=== PATIENT | female | born 1950 | race Caucasian/White ===

== ENCOUNTER → 2023-06-07 11:02 | Outpatient (REF) | payer OTHER, SELFPAY | LOC: HWRAD 11:02 | PROVIDERS: ATTENDING PHYSICIAN Family Medicine | DX: R07.89 Other chest pain (principal) | CPT/HCPCS: 71046 ==

== ENCOUNTER 2023-11-14 03:52 | Inpatient (IN) | payer OTHER, SELFPAY ==
[2023-11-13 20:11] VITALS: BMI 32.1
[2023-11-13 20:14] VITALS: BP 218/120
[2023-11-13 20:27] LABS: % Basophils 0.4 % (0-2); % Eosinophils 2.7 % (0-6); % Immature Granulocytes 0.4 % (0-0.5); % Lymphocytes 22.5 % (20.5-51.1); % Monocytes 8.4 % (1.7-9.3); % Neutrophils 65.6 % (42.2-75.2); Absolute Eosinophils 0.3 10^3/uL (0-0.7); Absolute Lymphocytes 2.2 10^3/uL (1.2-3.4); Absolute Monocytes 0.8 10^3/uL (0.1-0.6); Absolute Neutrophils 6.3 10^3/uL (1.4-6.5); Hematocrit 38.1 % (37.0-47.0); Hemoglobin 13.1 g/dL (12.0-16.0); Mean Corp Hgb Conc. 34.4 g/dL (33.0-37.0); Mean Corpuscular Hgb 28.5 pg (27.0-31.0); Mean Platelet Volume 9.3 fL (7.4-10.4); Nucleated Red Blood Cells % 0 %; Platelet Count 243 10^3/uL (130-400); Red Blood Cell Count 4.59 10^6/uL (4.20-5.40); White Blood Cell Count 9.6 10^3/uL (4.8-10.8)
[2023-11-13 20:45] LABS: ALT (SGPT) 21 U/L (0-35); AST (SGOT) 27 U/L (14-36); Albumin 4.2 g/dl (3.5-5.0); Alkaline Phosphatase 65 U/L (38-126); Blood Urea Nitrogen 17 mg/dl (7-17); Calcium 9.7 mg/dl (8.4-10.2); Carbon Dioxide 31 mmol/L (22-30); Chloride 104 mmol/L (98-107); Glucose 132 mg/dl (70-99); Lipase 99 U/L (23-300); Potassium 3.1 mmol/L (3.5-5.1); Sodium 143 mmol/L (135-145); Total Bilirubin 0.5 mg/dl (0.2-1.3); Total Protein 6.4 g/dl (6.3-8.2); eGFR > 60.00
[2023-11-13 21:10] VITALS: BP 171/107
[2023-11-13 21:19] VITALS: BP 171/107
[2023-11-13 21:23] LABS: Urine Albumin Negative (Neg - Trace); Urine Bilirubin Negative (Negative); Urine Character Clear (Clear); Urine Color Yellow; Urine Glucose Negative (Negative); Urine Ketone Negative (Negative); Urine Leukocyte Trace (Negative); Urine Nitrite Negative (Negative); Urine Occult Blood Negative (Negative); Urine Urobilinogen Negative (Neg - 1+)
--- NOTE | 2023-11-13 21:39 | ED.GENMED ---
History of Present Illness
General
Chief Complaint: Abdominal Pain
Source: patient
Exam Limitations: none
Time Seen by Provider: 11/13/23 20:27
Nursing documentation reviewed up to this point in time: agreed with
History of Present Illness
History of Present Illness:
Patient is a 73-year female who presents to ER with continued abdominal pain. She reports she started with abdominal pain Tuesday while on vacation [place]. Pain continued and she vomited on Tuesday 2 days ago. She was seen in the ER
[place] on Tuesday and had a CAT scan which was negative. She complains of persistent and worsening pain in her abdomen worse on the whole right side of her abdomen. Worse with taking a deep breath worse with movement. She denies any nausea
vomiting. She is only eating with taking her medication.
She denies any constipation diarrhea.
Past History
Past History
ED Past Medical History: HTN (noncompliant w/ meds), Other (Osteomyelitis, migraines, Vertigo, PNA) and Other (Cerebral aneurysms, hiatal hernia)
ED Past Surgical History: Brain (cerebral aneurism coiling 2011 [facility]) and Other (Osteomyelitis )
Social History
Tobacco: Former smoker (wearing a Patch)
Alcohol: None
Drug: None
Personal:
Living: with family
Employment: Employed
Family History
Family History: Hypertension
Review of Systems
Review of Systems
Allergies reviewed?: Yes
All Other Systems: ROS reviewed and negative except as documented in HPI and ROS
Constitutional: Reports no symptoms; Denies fever, fatigue or chills
Respiratory: Reports other (Pain in the abdomen with deep breath)
Cardiac: Reports no symptoms
ABD/GI: Reports abdominal pain; Denies nausea, vomiting or diarrhea
: Reports no symptoms
Musculoskeletal: Reports no symptoms
Skin: Reports no symptoms
Neurological: Reports no symptoms
Psychiatric: Reports no symptoms
Phy Exam
General Physical Exam
General Presentation: no apparent distress
General age: appears stated age
General Skin: warm and dry
General Habitus: normal
General Mental: alert
General Hydration: appears well hydrated
Gastrointestinal Exam
Gastrointestinal Exam: soft and other ( very tender throughout right abdomen )
Neurological Exam
Neurological Exam: alert and oriented x3
Musculoskeletal Exam
Musculoskeletal Exam: full ROM
Skin Exam
Skin Exam: normal color and warm/dry
Psychiatric Exam
Psychiatric Exam: normal mood/affect
Course
Orders/Labs/Results
Orders:
Orders
11/13/23 20:23
Complete Blood Count/With Diff Urgent
Comprehensive Metabolic Panel Urgent
Lipase Urgent
11/13/23 21:16
Urinalysis Reflex To Culture Urgent
Date Specimen was Collected: 11/13/23
Time Specimen was Collected: 20:18
Urine Microscopic Reflex Cult Urgent
11/13/23 21:50
CT Abd/Pel (IV only)-DH only Urgent
Comment:
Reason For Exam: right sided abd pain pain with deep breath /walkin
0.9% Sodium Chloride 1000 ml [Nss] 1,000 ml IV BOLUS
11/14/23 00:28
Morphine Sulfate 4 mg IV NOW STA
Abnormal Lab Results
11/13/23 11/13/23
20:23 21:16
Absolute Monos (auto) 0.8 H 10^3/uL
(0.1-0.6)
Potassium 3.1 L mmol/L
(3.5-5.1)
Carbon Dioxide 31 H mmol/L
(22-30)
Glucose 132 H mg/dl
(70-99)
Leukocyte Esterase Rfl Trace A
(Negative)
11/13/23 20:23
11/13/23 20:23
Vital Signs
Initial and Last Documented VS:
Initial Vital Signs
Temp Pulse Resp BP Pulse Ox
97.5 F 90 24 218/120 96
11/13/23 20:14 11/13/23 20:14 11/13/23 20:14 11/13/23 20:14 11/13/23 20:14
Last Documented Vital Signs
Temp Pulse Resp BP Pulse Ox
97.5 F 84 18 171/107 94
11/13/23 20:14 11/13/23 22:00 11/13/23 22:00 11/13/23 21:19 11/13/23 22:00
Lapper consulted with Physician
Lapper consulted with physician?: Yes
Name of Physician Consulted: Dr. Humphrey
MDM/Problems Addressed
Differential Diagnosis Includes:
Not limited to diverticulitis appendicitis biliary colic
MDM/Problems Addressed:
Patient with constant abdominal pain for the past several days had negative CAT scan while on vacation in [place] however patient complains of persistent abdominal pain very tender on exam worse on the right side. Pain with deep breath pain
with movement. CAT scan does suggest a right sided omental infarct no other acute intra-abdominal findings normal appendix. Patient requiring narcotic medication very uncomfortable on exam will admit for pain control continue monitoring. No fever
normal white count.
*Radiology
Radiology exam reviewed: radiology read reviewed
*Pulse Oximetry
Patient hypoxic: no
*Critical Care Note
Total Time (30-74mins, 75-104mins- exclusive of procedures): Not Applicable
ED Attending Note
-
Portions of this chart may have been created with voice recognition software.� Occasional wrong word or��sound alike� substitutions may have occurred due to the inherent limitations of voice recognition software.
Discharge Plan
Departure
Patient Disposition: Admit
Date of Disposition: 11/14/23
Time of Disposition: 01:37
Admit to: Med/Surg
Admit to doctor: hospitalist
Presentation/result/management discussed w/ accepting MD/DO: Hospitalist
Patient with high blood pressure during this ER visit?: Yes
Condition: Fair
Covid-19: Not Applicable
Discharge Problem:
Omental infarction
Prescriptions:
No Action
amlodipine 10 MG tablet
20 mg PO DAILY
calcium carbonate [Antacid (calcium carbonate)] 1 TABLET tablet,chewable
2 tab PO Q4HPRN PRN (Reason: heartburn)
xditayz-hxflcpdvodrka-ygqzhzak 1 TABLET tablet
2 tab PO DAILYPRN PRN (Reason: headache)
multivitamin with folic acid [Tab-A-Kofi] 1 TABLET tablet
1 tab PO DAILY
pantoprazole 40 MG tablet,delayed release (DR/EC)
40 mg PO DAILY
Referrals:
Erwin Dumont, DO [Family Provider] -
Interventions
Interventions:
*Risk Screen - Suicide Last Done: 11/13/23 20:14
*Neglect/Abuse Screening Last Done: 11/13/23 20:14
ED- Fall Risk Assessment Last Done: 11/13/23 21:17
JZ-Odpisl-Tbrolwukbw Assessment Last Done: 11/13/23 21:17
Discharge Date and Time
Print Language: BENINESE
[2023-11-13 21:40] LABS: Urine Red Blood Cell 0-2 /HPF (0-2)
[2023-11-13] MEDS: NSS 1000 IV (22:23)
[2023-11-14] VITALS (10 sets, daily range): BP systolic 154–223; BP diastolic 85–119; PULSE 72–85; BMI 29.8
[2023-11-14] MEDS: MORPHINE SULFATE 4 MG IV (00:35)
--- NOTE | 2023-11-14 03:01 | HPS.HSE ---
Family Physician
-
Family Physician: Erwin Dumont
Chief Complaint
-
Abd Pain
History of Present Illness
Patient is a 73y F with PMH significant for cerebral aneurysm who presents to ED complaining of abdominal pain. Patient states that she developed R sided abdominal pain on Tuesday. Her pain has steadily increased since that time and has
spread to include the R lower chest and periumbilical areas. Patient developed N/V on Tuesday and presented to the ED in the [facility] where she was vacationing. They administered pain medications and offered admission but patient elected to
return home to [place]. She presented to ED today with continued worsening of her pain.
She states that the car ride home was especially uncomfortable.
Patient has had no further N/V. She denies any F/C. No changes in bowels including diarrhea, black or bloody stools.
Medical History
Past Medical History
Past Medical History: Reports Other
Additional Past Medical History:
Cerebral Aneurysm
RLE Infection / Osteomyelitis
Past Surgical History: Reports Other
Additional Past Surgical History:
Right Anterior Communication Aneurysm Coiling
Right Foot Surgery
Social History
Tobacco: Smoker (Current every day smoker. > 50 pack years total use.)
Alcohol: None
Drug: None
Family History
Family History: Not pertinent
Allergies / Home Medications
Allergies reflects when Allergies were last updated in [employer].
Home Medications with original date entered in [employer]
Allergy/Medication List:
Allergies
Allergy/AdvReac Type Severity Reaction Status Date / Time
cefazolin sodium [From [facility]] Allergy Itching Verified 11/13/23 20:17
Home Medications
No Meds [No Current Medications] 11/14/23
Review of Systems
-
History Source: Patient
Constitutional: Denies Fever or Chills
Respiratory: Denies Cough or Trouble Breathing
Cardiac: Denies Chest Pain or Palpitations
Abdomen/GI: Reports Abdominal Pain, Nausea and Vomiting; Denies Diarrhea, Constipated, Bloody Stools or Black Stools
: Denies Dysuria or Flank Pain
Musculoskeletal: Denies Joint Pain or Edema
Neurological: Denies Dizzy or Headache
Physical Exam
Vital Signs
Vital Signs
Temp Pulse Resp BP Pulse Ox
97.5 F 84 18 164/97 93
11/13/23 20:14 11/13/23 22:00 11/13/23 22:00 11/14/23 01:00 11/14/23 02:00
Physical Exam
General: Other (73y F in mild distress due to pain.)
HEENT: Moist mucous membranes and PERRLA
Respiratory: Clear; No Wheezes, Rales or Rhonchi
Cardiac: S1/S2 and Regular Rhythm; No Murmur
GI: Other (Abdomen is distended. Pos significant tenderness with guarding R abdomen. Pos bowel sounds. )
Musculoskeletal: No Clubbing, No Cyanosis and No Edema
Skin: Other (Skin changes / eczema of the lower extremities.)
Neuro: AO x 3
Laboratory Results
-
11/13/23 20:23
11/13/23 20:23
Laboratory Results
Total Bilirubin 0.5 mg/dl (0.2-1.3) 11/13/23 20:23
AST 27 U/L (14-36) 11/13/23 20:23
ALT 21 U/L (0-35) 11/13/23 20:23
Alkaline Phosphatase 65 U/L (38-126) 11/13/23 20:23
Lipase 99 U/L (23-300) 11/13/23 20:23
Impression/Plan
-
A/P: Patient is a 73y F with PMH significant for cerebral aneurysm who presents to ED complaining of abdominal pain.
Omental Infarct
Abdominal Pain secondary to the above
- Admit for further evaluation and treatment.
- NPO, IVFs, pain control / supportive care.
- Multiple potential etiologies including torsion / mechanical, atherosclerotic / smoking-elated, embolic, etc.
- Surgery evaluation - may require ligation if pain worsens / persists.
- Empiric abx coverage for now.
- Check lactate now and follow serial levels to rule out ongoing ischemia.
- Monitor on telemetry for any evidence of A-Fib / arrhythmia.
- Check Echo for completeness.
- Follow for any new / worsening symptoms.
Mild Hypokalemia
- Replace via IVFs.
- Check magnesium in the AM.
- Follow for improvement.
Tobacco Use Disorder
- Affects all aspects of care and potentially directly related to current presentation.
- Encourage efforts at smoking cessation.
DVT Prophylaxis: Lovenox
Code Status: Full
[2023-11-14 03:16] LABS: Lactic Acid 0.9 mmol/L (0.7-2.0)
[2023-11-14] MEDS: TORADOL 30 MG IV (04:16)
--- NOTE | 2023-11-14 04:45 | PTCARENOTE ---
Pt admit from ED via stretcher. Ambulated into room independently. Placed on tele-NSR. Assessment as charted.
[2023-11-14] MEDS: UNASYN IV ×4 (05:38→23:49)
[2023-11-14] MEDS: NSS with KCL 40 MEQ 1000 IV ×2 (06:01→13:42)
--- NOTE | 2023-11-14 06:38 | PTCARENOTE ---
Pt states she has hx of HTN but stopped taking medication because she didn't like the way it made her feel.
[2023-11-14] MEDS: PROTONIX IV 40 MG IV (07:00)
[2023-11-14] MEDS: NSS (PRESERVATIVE FREE) 10 ML IV (07:00)
[2023-11-14 07:31] LABS: Lactic Acid 0.6 mmol/L (0.7-2.0)
[2023-11-14 07:34] LABS: Hematocrit 35.8 % (37.0-47.0); Hemoglobin 12.4 g/dL (12.0-16.0); Mean Corp Hgb Conc. 34.6 g/dL (33.0-37.0); Mean Corpuscular Hgb 28.9 pg (27.0-31.0); Mean Corpuscular Volume 83.4 fL (81.0-99.0); Mean Platelet Volume 9.4 fL (7.4-10.4); Platelet Count 226 10^3/uL (130-400); Red Blood Cell Count 4.29 10^6/uL (4.20-5.40); Red Cell Dist. Width 12.9 % (11.5-14.5); White Blood Cell Count 8.7 10^3/uL (4.8-10.8)
[2023-11-14 08:23] LABS: Blood Urea Nitrogen 16 mg/dl (7-17); Calcium 9.2 mg/dl (8.4-10.2); Carbon Dioxide 29 mmol/L (22-30); Chloride 108 mmol/L (98-107); Estimated Creatinine Clearance 83 ml/min; Glucose 95 mg/dl (70-99); Potassium 3.5 mmol/L (3.5-5.1); Sodium 144 mmol/L (135-145); eGFR > 60.00
[2023-11-14] MEDS: TORADOL 15 MG IV ×3 (08:26→20:24)
[2023-11-14] MEDS: TRANDATE 10 MG IV ×3 (08:26→23:46)
--- NOTE | 2023-11-14 08:34 | PTCARENOTE ---
Patient noted to be hypertensive upon checking morning vital signs, blood pressure 190/113; Patient denies headache and/or changes in vision; States pain is the same as when she was admitted and is tolerable for her; Dr. Holland notified; PRN
medication ordered, see MAR
--- NOTE | 2023-11-14 09:12 | CON.GS ---
Consultation
-
Date/Time Consultation Requested: 11/14/23 0442
Requesting Provider: Rivera
Reason for Consultation: Omental Infarct / Abdominal Pain
Medical History
-
Chief Complaint: Abdominal pain
History of Present Illness:
Ms Benavides is a 73 yo female with a h/o SAH with coiling of brain aneurysm, COPD, HTN (stopped taking her norvasc rx), right foot osteomyelitis with debridement who is an active smoker presenting with right abdominal pain which began on 5-6 days ago
and has increasingly worsened. She was on vacation when the pain started but did go to the local ED 2 days after her pain started as she developed nausea with vomiting as well. She notes that she was discharged from that ED with no abnormal
findings. She currently reports pain to the right mid abdomen with severe tenderness and guarding on exam. Her abdomen is soft and not distended. She denies active nausea and has had no further vomiting. She denies fevers or chillls.
Past Medical History
Past Medical History: COPD, GERD, HTN, Hypercholesterolemia and Other (SAH, Osteo of the RLE, migraines)
Past Surgical History: Brain (Coiling of right sided anuerysm) and Orthopedic (right foot debridements)
Social History
Tobacco: Smoker
Alcohol: None
Family History
Family History: Reviewed & Not Pertinent
Allergies / Home Medications
Allergy/AdvReac Type Severity Reaction Status Date / Time
cefazolin sodium [From [facility]] Allergy Itching Verified 11/13/23 20:17
�Medication �Instructions �Recorded �Confirmed �Type
No Meds [No Current Medications] 11/14/23 11/14/23 History
Review of Systems
-
History Source: Patient
All other systems: Negative unless noted
A 10 point review of systems was completed, and was negative except as per HPI.
Physical Exam
Vital Signs
Temp Pulse Resp BP Pulse Ox
97.9 F 73 16 191/102 90
11/14/23 07:24 08/26/24 08:26 11/14/23 07:24 11/14/23 08:26 11/14/23 07:24
11/13/23 11/14/23 11/15/23
06:59 06:59 06:59
Actual Weight 76.204 kg
Body Mass Index (BMI) 29.8
Lab Results
11/14/23 07:09
11/14/23 07:09
WBC 8.7 10^3/uL (4.8-10.8) 11/14/23 07:09
Hgb 12.4 g/dL (12.0-16.0) 11/14/23 07:09
Hct 35.8 % (37.0-47.0) L 11/14/23 07:09
Plt Count 226 10^3/uL (130-400) 11/14/23 07:09
Abs Immat Gran (auto) 0.0 10^3/uL (0-0.05) 11/13/23 20:23
Neutrophils % 65.6 % (42.2-75.2) 11/13/23 20:23
Physical Exam
General: Well Developed
HEENT: Normocephalic
GI: Soft, Non Distended, Tender (R mid abd) and Obese
Neuro: Awake, Alert and AO x 3
Psych: Calm
Data Reviewed
-
CT Scan: Image Personally Visualized and interpreted, Report Reviewed by me, Discussed with Physician and Discussed with Patient
Labs: Labs Reviewed by me, Discussed with Physician and Discussed with Patient
Old Records: Reviewed
Assessment / Plan
-
Ms Benavides is a 73 yo female with a h/o SAH with coiling of brain aneurysm, COPD, HTN, right foot osteomyelitis with debridement who is an active smoker presenting with right lower abdominal pain which began on 5-6 days ago and has increasingly
worsened. N/V 3 days ago but none since. On exam, there is significant tenderness to the right mid abd with light palpation with guarding. CT imaging reviewed with findings of omental infarction in the right upper to mid abdomen. Afebrile. with
markedly elevated BP. No leukocytosis and normal lactic acid
If able to manage pain and continues with no signs of infection, will likely not require surgery for this; however, if severe pain persists may need surgery for omentectomy tentatively tomorrow pending patient course
--Scheduled Toradol 15mg q6h
--Prn narcotics for pain
--Continue NPO until pain improves
--Medical management as per primary team
--- NOTE | 2023-11-14 10:44 | W.PN.UPDATE ---
Update Note
Progress Note Update
Seen and examined independently of overnight physician. States remains with abdominal pain. Denies any nausea or vomiting. States pain meds alleviates the pain to some extent.
General: Other (73y F in mild distress due to pain.)
HEENT: Moist mucous membranes and PERRLA
Respiratory: Clear; No Wheezes, Rales or Rhonchi
Cardiac: S1/S2 and Regular Rhythm; No Murmur
GI: Other (Abdomen is distended. Pos significant tenderness with guarding R abdomen. Pos bowel sounds. )
Musculoskeletal: No Clubbing, No Cyanosis and No Edema
Skin: Other (Skin changes / eczema of the lower extremities.)
Neuro: AO x 3
A/P: Patient is a 73y F with PMH significant for cerebral aneurysm who presents to ED complaining of abdominal pain.
Omental Infarct
Abdominal Pain secondary to the above
- IVFs, pain control / supportive care. Diet per surgery.
- Multiple potential etiologies including torsion / mechanical, atherosclerotic / smoking-elated, embolic, etc.
- Surgery evaluation - may require ligation if pain worsens / persists.
- Empiric abx coverage for now.
- Lactic normal.
- Monitor on telemetry for any evidence of A-Fib / arrhythmia.
- Check Echo for completeness.
- Follow for any new / worsening symptoms.
Mild Hypokalemia
- Replace via IVFs.
- Follow for improvement.
Primary hypertension
-Used to be on Norvasc 10 mg which seems patient stopped.
-Currently elevated. Will do IV as needed. If no significant improvement even pain control will need to start p.o. Procardia.
Tobacco Use Disorder
- Affects all aspects of care and potentially directly related to current presentation.
- Encourage efforts at smoking cessation.
DVT Prophylaxis: Lovenox
Code Status: Full
[2023-11-14] MEDS: PROCARDIA XL (EXTENDED RELEASE) 30 MG PO (11:36)
--- NOTE | 2023-11-14 11:43 | PTCARENOTE ---
Notified by PCT regarding patient's orthostatic vital signs; Supine 186/96, Sitting 198/105, and standing 223/119; Patient states that pain is slightly improved; Patient does complain of a headache but states 'it's from not eating'; Patient denies
vision changes; Dr. Holland notified; Daily Nifedipine ordered, see MAR; Patient ordered PRN tylenol for headache, patient declines this at this time; Plan of care ongoing
--- NOTE | 2023-11-14 14:58 | CM ---
Alert awake oriented patient who lives with her granddaughter Sergio in a 1 story home with 0 steps to enter. She is independent in driving and all activates of daily living.She has no adaptive devices.Offered VN she declined need.
Had VN in past . No SNF hx
Pharmacy [facility]
PCP Dr Dumont
PLAN Home with no anticipated needs
[2023-11-14] MEDS: LOVENOX 40 MG SC (17:26)
[2023-11-14] MEDS: COLACE 100 MG PO (20:24)
[2023-11-14] MEDS: LOPRESSOR 12.5 MG PO (20:24)
[2023-11-14] MEDS: BENADRYL 25 MG PO (22:23)
[2023-11-15] VITALS (13 sets, daily range): BP systolic 151–207; BP diastolic 78–117; BMI 29.7
[2023-11-15] MEDS: NSS with KCL 40 MEQ 1000 IV (01:08)
[2023-11-15] MEDS: TORADOL 15 MG IV ×4 (01:08→19:28)
[2023-11-15] MEDS: APRESOLINE 5 MG IV ×2 (03:43→12:48)
[2023-11-15] MEDS: UNASYN IV ×3 (05:56→17:03)
[2023-11-15] MEDS: TRANDATE 10 MG IV ×2 (07:01→17:15)
[2023-11-15 07:18] LABS: % Basophils 0.5 % (0-2); % Eosinophils 4.5 % (0-6); % Immature Granulocytes 0.3 % (0-0.5); % Lymphocytes 18.6 % (20.5-51.1); % Monocytes 8.2 % (1.7-9.3); % Neutrophils 67.9 % (42.2-75.2); Absolute Eosinophils 0.4 10^3/uL (0-0.7); Absolute Lymphocytes 1.4 10^3/uL (1.2-3.4); Absolute Monocytes 0.6 10^3/uL (0.1-0.6); Absolute Neutrophils 5.3 10^3/uL (1.4-6.5); Hematocrit 36.2 % (37.0-47.0); Hemoglobin 12.5 g/dL (12.0-16.0); Mean Corp Hgb Conc. 34.5 g/dL (33.0-37.0); Mean Corpuscular Hgb 28.7 pg (27.0-31.0); Mean Platelet Volume 9.3 fL (7.4-10.4); Nucleated Red Blood Cells % 0 %; Platelet Count 233 10^3/uL (130-400); Red Blood Cell Count 4.36 10^6/uL (4.20-5.40); Red Cell Dist. Width 12.7 % (11.5-14.5); White Blood Cell Count 7.7 10^3/uL (4.8-10.8)
[2023-11-15 07:35] LABS: Blood Urea Nitrogen 12 mg/dl (7-17); Calcium 9.2 mg/dl (8.4-10.2); Carbon Dioxide 23 mmol/L (22-30); Chloride 112 mmol/L (98-107); Estimated Creatinine Clearance 83 ml/min; Glucose 106 mg/dl (70-99); Potassium 3.9 mmol/L (3.5-5.1); Sodium 146 mmol/L (135-145); eGFR > 60.00
--- NOTE | 2023-11-15 07:57 | PTCARENOTE ---
attending notified of continued HTN despite PRN administration. see MAR for N/O
[2023-11-15] MEDS: LOPRESSOR 25 MG PO (08:08)
[2023-11-15] MEDS: COZAAR 50 MG PO (08:08)
[2023-11-15] MEDS: PROTONIX IV 40 MG IV (08:09)
[2023-11-15] MEDS: NSS (PRESERVATIVE FREE) 10 ML IV (08:09)
[2023-11-15] MEDS: COLACE 100 MG PO ×2 (08:09→19:29)
--- NOTE | 2023-11-15 08:24 | W.PN.GS2 ---
Addendum entered and electronically signed by Lazarus Lyon MD 11/15/23 14:10:
Patient seen and examined.
Continued though stable pain. No nausea or vomiting. No fevers or chills. Complaints of lightheadedness and dizziness. Also some reports of chest discomfort with exertion.
Gen: NAD
Abd: soft, tender to palpation in RUQ, ND, no diffuse peritonitis
Persistent though stable pain. No evidence of active infection. The natural history and pathophysiology of omental infarct was discussed. Oftentimes if these are small and managed with OTC pain medications and by a nonoperative route. If pain
persists and if large degree of fat necrosis which may serve as a nidus for infection then consider omentectomy. Options for management were again reviewed with the patient. Patient expresses interest in proceeding with surgical intervention.
Currently her blood pressures are poorly controlled likely due to chronic/outpatient neglect combined with acute pain and anxiety. Recent echo notable for HOCM. Case discussed with Hospitalist, plan for Cardiology evaluation and risk assessment
and improved BP consider. Operative intervention today versus tomorrow pending BP control.
Right sided mid abdominal pain
--Prn narcotics for pain
--Planned Omentectomy, added to schedule tomorrow (11/15)
--OK for diet, NPO PM
--Continue Abx
Uncontrolled Hypertension
--Manage per medical team
--Cardiology consulted, input appreciated
--Planned for surgery once cleared by medical team
DVT Prophylaxis- Lovenox
Original Note:
Today's Communication / Plan
-
Planned for Omentectomy today once cleared by medical team.
Assessment / Plan
-
Assessment:
Ms Benavides is a 73 yo female with a h/o SAH with coiling of brain aneurysm, COPD, HTN, right foot osteomyelitis with debridement who is an active smoker presenting with right lower abdominal pain which began on one week ago and has increasingly
worsened. On exam, there is significant tenderness to the right mid abdomen with light palpation with guarding. CT imaging reviewed with findings of omental infarction in the right upper to mid abdomen. Patient's condition has not improved and has
had uncontrolled blood pressure. Patient's blood pressure should be control and will be scheduled for an omentectomy once she is cleared by the medical team.
Plan:
Right sided mid abdominal pain
--Prn narcotics for pain
--Planned Omentectomy
--Continue NPO until surgery
--Continue Abx
Uncontrolled Hypertension
--Manage per medical team
--Cardiology consulted, input appreciated
--Planned for surgery once cleared by medical team
DVT Prophylaxis- Lovenox
Subjective Data
-
Date of Service: November 15, 2023
Patient says that her condition has not improved with pain medications and is still feeling the same as before. Patient wants to undergo surgery and was frustrated that she had to wait a day. Patient has also been complaining of some light
headedness/dizziness.
Objective Data
-
Intake and Output
11/14/23 11/15/23 11/16/23
06:59 06:59 06:59
Intake Total 2510 / 2510
Balance 2510 / 2510
Intake:
IV fluids (Total) 2150 / 2150
IV piggybacks 360 / 360
Other:
Number of approximated MODERATE 3
amounts of urine
Number of approximated LARGE 2
amounts of urine
Vital Signs
Temp Pulse Resp BP Pulse Ox
99.1 F 81 14 200/117 91
11/15/23 07:00 11/15/23 08:11 11/15/23 07:00 11/15/23 08:11 11/15/23 07:00
Lab Results
11/15/23 06:50
11/15/23 06:50
Calcium 9.2 mg/dl (8.4-10.2) 11/15/23 06:50
Magnesium 2.0 mg/dl (1.6-2.3) 11/14/23 07:09
Total Bilirubin 0.5 mg/dl (0.2-1.3) 11/13/23 20:
AST 27 U/L (14-36) 11/13/23 20:23
ALT 21 U/L (0-35) 11/13/23 20:
Alkaline Phosphatase 65 U/L (38-126) 11/13/23 20:
Total Protein 6.4 g/dl (6.3-8.2) 11/13/23 20:
Albumin 4.2 g/dl (3.5-5.0) 11/13/23 20:23
Physical Exam
-
General: Well Developed
HEENT: Normocephalic
GI: Soft, Non Distended, Tender (R mid abd) and Obese
Neuro: Awake, Alert and AO x 3
Psych: Agitated/Anxious
[2023-11-15] MEDS: D5/0.45%NACL 1000 IV (09:05)
--- NOTE | 2023-11-15 10:18 | CON.CAR ---
Addendum entered and electronically signed by Erwin Pan MD 11/15/23 12:22:
Please note based on my discussion with general surgery the patient does not require acute intervention today. For this reason I would recommend further assessment today and better control of hypertension prior to proceeding with surgery and
reassessment in AM.
Addendum entered and electronically signed by Erwin Pan MD 11/15/23 12:22:
I saw and examined the patient.
The RESEARCH PROGRAM MANAGER's note was reviewed and I agree with the note.
Also 73-year-old female with history of hypertension who has not been taking her medical therapy, subarachnoid hemorrhage in the past with previous coiling of aneurysm, COPD, GERD and smoking who had lower abdominal pain and is now admitted for
additional treatment. Patient evaluated by Dr. Pappas work with plans for omentectomy. Patient with no prior cardiac history. Echo today shows normal left ventricular function LVH/hypertrophic cardiomyopathy some chordal BRINDA and moderate mitral
regurgitation. Jb. Peak continuous-wave gradient across the outflow tract and aortic valve is 14 mmHg without significantly elevated gradients with Valsalva. Patient denies having a history of coronary artery disease it sounds as if she has
had some long standing exertional shortness of breath. She sometimes has shortness of breath after 1 flight of stairs and sometimes will have faint chest sensation which resolves promptly after stopping activity. She has had no chest discomfort
over the past week and none since being in the hospital. She has been noted to be severely hypertensive. In the past she had been amlodipine but reportedly stopped taking it because she did not like the way she feels. Currently in the hospital
she has been maintained on low-dose metoprolol, losartan has been added and some IV hydralazine still hypertensive. Of note patient still having abdominal pain.
Preoperative evaluation. Patient with normal left ventricular function with hypertrophic cardiomyopathy although she does not appear to be have a high outflow tract gradient at the current time. Patient has increased risk due to the history noted
above including hypertension that is poorly controlled and in addition she may have some chronic stable angina. Unclear if some of her shortness of breath and chest symptoms are related to underlying lung disease and history of smoking but it is
possible some of her symptoms could relate be related to chronic stable angina at this is likely precipitated by severe poorly controlled hypertension. Considering the importance of this patient's surgery it may be reasonable for her to proceed
understanding she may have increased risk. However I would recommend that she has her hypertension better controlled prior to proceeding with surgery.
-Check ECG and troponins
-Will change from metoprolol to labetalol with additional titration of labetalol for blood pressure control
- Continue titration of-Cozaar for additional blood pressure control
-IV hydralazine
-additional pain control which will also help with blood pressure control
-If further issues with blood pressure control despite above measures could transfer to unit for additional IV meds
-
Original Note:
Consultation
Consultation Request
Date/Time Consultation Requested: 11/15/23 9a
Date/Time Consultation Performed: 11/15/23 9:30a
Requesting Provider: Dr. Holland
Performing Provider: SERGEY Lange for Dr. Pan
Reason for Consultation: uncontrolled HTN, HOCM
Medical History
-
Chief Complaint: abdominal pain
History of Present Illness:
Mrs. Benavides is a 73 yo female with untreated HTN (stopped Norvasc 10mg 6 months ago), SAH with coiling of brain aneurysm, COPD, hiatal hernia, GERD, right foot osteomyelitis with debridement, and active smoker, who presented to the ER with right
abdominal pain that began on 5-6 days ago. She was admitted to the hospitalist service and we are consulted for HTN and new HOCM on echo. Surgery is following and plan for Omentectomy today. She c/o RLQ abd pain currently. She denies any cardiac
symptoms now. She admits to CP, MAHAN and lightheadedness intermittently for the last 6 months. Symptoms occur with exertion and improve with rest.
Past Medical History
Past Medical History: Other (as above)
Past Surgical History: Other (Coiling of right sided anuerysm, right foot debridements)
Social History
Tobacco: Smoker (1ppd for 50 years)
Alcohol: None
Living: With Family (16 yo granddaughter she raises)
Family History
Family History: Other (mother had CHF in her 70s)
Allergies / Home Medications
Allergy/AdvReac Type Severity Reaction Status Date / Time
cefazolin sodium [From Ancef] Allergy Itching Verified 11/13/23 20:17
�Medication �Instructions �Recorded �Confirmed �Type
No Meds [No Current Medications] 11/14/23 11/14/23 History
Review of Systems
-
History Source: Patient
All other systems: Negative unless noted
Physical Exam
Vital Signs
Temp Pulse Resp BP Pulse Ox
99.1 F 64 14 187/94 91
11/15/23 07:00 11/15/23 09:33 11/15/23 07:00 11/15/23 09:33 11/15/23 07:00
Lab Results
11/15/23 06:50
11/15/23 06:50
Physical Exam
General: Well Developed, Well Nourished and Other (mild distress from RLQ pain when moving)
HEENT: Normocephalic, Anicteric and Moist Mucous Membranes
Respiratory: Clear and Non Labored Respirations
Cardiac: S1/S2 and Regular Rhythm
Breast: Deferred by me
GI: Soft, Tender (RLQ) and Other (diminish bowel sounds)
Genito-urinary: No Costovertebral Tender
Musculoskeletal: Clubbing, No Cyanosis and No Edema
Skin: Warm and Dry
Neuro: AO x 3
Psych: Other (annoyed about being hospitalized but pleasant)
Impression / Plan
-
HTN - uncontrolled.
- stopped taking Norvasc 10mg as prescribed 6 months ago as it made her feel 'weird, dizzy'.
- continue Lopressor, Losartan and PRN Hydralazine.
- will re-evaluate meds after see BP response to Hydralazine today.
- she has not had any pain meds (her choice) so pain is playing a role as well.
HOCM - new on echo.
- severe cLVH, no LVOT obstruction.
- meds as above.
Abdominal pain - acute.
- omental infarction in the right upper to mid abdomen on CT scan.
- surgery following and plan for omentectomy today.
- encouraged her to have pain meds as ordered.
Smoker - smoking cessation reviewed and she is not ready to quit at this time.
Data Reviewed
-
EKG: Tracing Personally Visualized and interpreted (NSR 72 bpm, nonspecific ST abn)
CT Scan: Report Reviewed by me (omental infarction in the right upper to mid abdomen)
Medical Tests (Nuc Med, Echo etc): Report Reviewed by me (echo 11/14/23: small LV size, severe cLVH, hyperdynamic LV function EF 70-75%, thickened MV leaflets, chordal BRINDA, moderate MR, HOCM)
Labs: Labs Reviewed by me
Old Records: Reviewed
--- NOTE | 2023-11-15 10:58 | PTCARENOTE ---
attending, surgery and cardiology all notified of continued HTN, with manual. No PRN available to pt.
[2023-11-15] MEDS: APRESOLINE 10 MG IV ×2 (11:02→15:12)
--- NOTE | 2023-11-15 11:25 | W.PN.HOSP.TC ---
Today's Communication/Plan
-
Blood pressure control
Change IV fluids
Pain control
Cardiology recs
Tentative OR later today versus tomorrow
Assessment / Plan
Assessment / Plan
General: sitting in chair,
HEENT: Moist mucous membranes
Respiratory: Clear; No Wheezes, Rales or Rhonchi
Cardiac: S1/S2 and Regular Rhythm; No Murmur
GI: Other (Abdomen is distended. Pos significant tenderness with guarding R abdomen. Pos bowel sounds. )
Musculoskeletal: No Clubbing, No Cyanosis and No Edema
Skin: Other (Skin changes / eczema of the lower extremities.)
Neuro: AO x 3
A/P: Patient is a 73y F with PMH significant for cerebral aneurysm who presents to ED complaining of abdominal pain.
Omental Infarct
Abdominal Pain secondary to the above
- IVFs, pain control / supportive care. Diet per surgery.
- Multiple potential etiologies including torsion / mechanical, atherosclerotic / smoking-elated, embolic, etc.
- Surgery evaluation - may require ligation if pain worsens / persists.
- Empiric abx coverage for now.
- Lactic normal.
- Monitor on telemetry for any evidence of A-Fib / arrhythmia.
- Follow for any new / worsening symptoms.
- Plan for OR tentatively later today but seems most likely tomm.
Primary hypertension elevated likely chronically
Hypertension urgency
-Used to be on Norvasc 10 mg which seems patient stopped.
-Started on beta-betsy and switch to labetalol per cardiology. Losartan 50 mg and can uptitrate as needed. May need further adjustment. As needed IV meds ordered.
-Persistent uncontrolled may need IV nitroglycerin
Suspected chronic stable angina
Left ventricular hypertrophy likely 2/2 uncontrolled blood pressure versus HOCM
Mitral regurgitation
-Blood pressure control.
-ECHO noted
-Troponin ordered.
-Cardiology following.
Abdominal aortic aneurysm likely secondary to uncontrolled hypertension secondary to noncompliance and smoking
-CT abdomen pelvis with fusiform aneurysm of the abdominal aorta with mural thrombus. Measuring 3.7 cm. Increase in size compared to 2.[address]
-Counseled on complete alcohol cessation and to be compliant with medications
-Outpatient vascular surgery follow-up
History of brain aneurysm x 2
-Recommended for strict blood pressure control
Mild hypernatremia
-IVF transtioned to hypotonic saline D5/12NS.
-Trend bmp
Mild Hypokalemia
- Replace via IVFs.
- Follow for improvement.
Tobacco Use Disorder
- Affects all aspects of care and potentially directly related to current presentation.
- Encourage efforts at smoking cessation.
DVT Prophylaxis: Lovenox
Code Status: Full
d/w [facility]
Anticipated Discharge: > 48 hours
Subjective/Interval History
-
Date of Service: November 15, 2023
remains with abd pain
BP elevated-off meds >6months
Objective Data
-
Labs:
Laboratory Results
11/15/23
06:50
WBC 7.7
Hgb 12.5
Hct 36.2 L
Plt Count 233
Sodium 146 H
Potassium 3.9
Chloride 112 H
Carbon Dioxide 23
BUN 12
Creatinine 0.6
Glucose 106 H
Calcium 9.2
Vital Signs:
Vital Signs
Temp Pulse Resp BP Pulse Ox
98.2 F 80 12 202/98 97
11/15/23 11:00 11/15/23 11:02 11/15/23 11:00 11/15/23 11:02 11/15/23 11:00
I&O
11/14/23 11/15/23 11/16/23
06:59 06:59 06:59
Intake Total 2510 / 2510
Balance 2509
Data Reviewed
-
Total Time Spent with Patient (in minutes): 63
[2023-11-15] MEDS: TYLENOL 1000 MG PO ×3 (11:37→22:37)
--- NOTE | 2023-11-15 12:07 | PTCARENOTE ---
manual BP recheck after hydralazine 10mg 200/100, Cardiology notified
--- NOTE | 2023-11-15 12:43 | PTCARENOTE ---
pt C/O not feeling well, feeling SOB, 'forgetting to breathe' BP 184-86...refusing hydralazine and labetalol. agitated and anxious. reaching out to attending
[2023-11-15] MEDS: TRANDATE 100 MG PO ×2 (12:48→19:31)
[2023-11-15] MEDS: LOVENOX 40 MG SC (17:03)
[2023-11-15] MEDS: ZOFRAN 4 MG IV (19:26)
[2023-11-15 19:39] LABS: Troponin I 0.031 ng/ml
[2023-11-16] VITALS (11 sets, daily range): BP systolic 134–192; BP diastolic 73–102; PULSE 75–130; BMI 29.8
[2023-11-16] MEDS: UNASYN IV ×5 (00:10→23:29)
[2023-11-16] MEDS: TORADOL 15 MG IV (02:32)
[2023-11-16] MEDS: D5/0.45%NACL 1000 IV (02:33)
[2023-11-16] MEDS: TRANDATE 10 MG IV ×2 (02:53→17:49)
[2023-11-16] MEDS: TYLENOL 650 MG PO (05:47)
[2023-11-16] MEDS: APRESOLINE 10 MG IV ×3 (07:30→16:24)
[2023-11-16 07:45] LABS: % Basophils 0.2 % (0-2); % Eosinophils 2.4 % (0-6); % Immature Granulocytes 0.7 % (0-0.5); % Monocytes 8.9 % (1.7-9.3); % Neutrophils 76.8 % (42.2-75.2); Absolute Eosinophils 0.1 10^3/uL (0-0.7); Absolute Lymphocytes 0.5 10^3/uL (1.2-3.4); Absolute Monocytes 0.4 10^3/uL (0.1-0.6); Absolute Neutrophils 3.2 10^3/uL (1.4-6.5); Hematocrit 34.6 % (37.0-47.0); Mean Corp Hgb Conc. 34.7 g/dL (33.0-37.0); Mean Corpuscular Hgb 29.9 pg (27.0-31.0); Mean Corpuscular Volume 86.1 fL (81.0-99.0); Mean Platelet Volume 9.6 fL (7.4-10.4); Nucleated Red Blood Cells % 0 %; Platelet Count 197 10^3/uL (130-400); Red Blood Cell Count 4.02 10^6/uL (4.20-5.40); Red Cell Dist. Width 12.9 % (11.5-14.5); White Blood Cell Count 4.2 10^3/uL (4.8-10.8)
[2023-11-16] MEDS: TRANDATE 100 MG PO (08:02)
[2023-11-16] MEDS: COLACE 100 MG PO ×2 (08:02→20:58)
[2023-11-16] MEDS: COZAAR 50 MG PO (08:02)
[2023-11-16] MEDS: NSS (PRESERVATIVE FREE) 10 ML IV (08:03)
[2023-11-16] MEDS: PROTONIX IV 40 MG IV (08:03)
[2023-11-16 08:06] LABS: Blood Urea Nitrogen 18 mg/dl (7-17); Carbon Dioxide 28 mmol/L (22-30); Chloride 108 mmol/L (98-107); Estimated Creatinine Clearance 71 ml/min; Glucose 120 mg/dl (70-99); Potassium 3.8 mmol/L (3.5-5.1); Sodium 143 mmol/L (135-145); eGFR > 60.00
--- NOTE | 2023-11-16 09:17 | W.PN.CD ---
Today's Communication / Plan
-
- BP has improved over th last 24 hours and now with systolics in the 150s. Appears to have had good response ot additon of labetalol
- continue current dosing of oral labetalolwith PRN dosing but would ultimately titrate labetalol for addtional BP control post op.
see pre op assessment
Impression / Plan
-
HTN -
-sever ehypertension on admission
- stopped taking Norvasc 10mg as prescribed 6 months ago as it made her feel 'weird, dizzy'.
- BP has improved over th last 24 hours and now iwht systolics in the 150s. Appears to have had good response ot additon of labetalol
- continue current dosing of oral labetalo with PRN dosing but would ultimately titrate labetalol for addtional BP control post op.
Pre
HOCM - new on echo.
- severe cLVH, LPateitn does nto have high LVOT gradint but has potentiial for addtiona obstruictive physiology under certian conditons ( hypovolemia,and pressors)
- Titrate Beta betsy
Abdominal pain - acute.
- omental infarction in the right upper to mid abdomen on CT scan.
- surgery following and plan for omentectomy. Reviewed issues with gen surgery including improrance of procedure. Continued pain and risk of infectionif not treated
Pre op evaluation Patients surgery postponed 11/15/23 due to poorly controlled BP. BP control is now improved and in reasonable range to proceed with surgery.
patient does have some increased risk related to Hypertrophic cardiomyopathy. In additional can not exclude underlying CAD. She has had some stable, exertional symptoms as outpatient. This may have also been precipitated by severe HTN and well as
possible underlying lung disease ( with smoking histroy) Even if some symptoms are related to underlying CAD the symptoms are stable and and addtional testing will not likely roving changer . Considering the importance of surgery it is reasonable
to proceed with surgery with the understanding that there is increased risk.I would suggest the following
- continue labetalol
- close monitor of BP
- avoid hypotension and hypovolemia
- If at any point pressor support is required , would avoid Dopamine.
Smoker - smoking cessation reviewed and she is not ready to quit at this time.
Physical Exam
Vital Signs/Labs
Vital Signs
Temp Pulse Resp BP Pulse Ox
98.4 F 78 16 156/78 92
11/16/23 07:00 11/16/23 08:02 11/16/23 07:00 11/16/23 08:02 11/16/23 07:00
11/15/23 11/16/23 11/17/23
06:59 06:59 06:59
Actual Weight 76.005 kg 76.204 kg
11/16/23 06:53
11/16/23 06:53
Magnesium 2.0 mg/dl (1.6-2.3) 11/14/23 07:09
LAB Results
11/15/23 11/15/23
12:24 19:05
Troponin I 0.030 0.031
Physical Exam
Constitutional: No acute distress
Cardiovascular: Rhythm & rate is regular
Respiratory: Respiratory effort normal
GI: Soft and Other
Neuro/Psych: Alert
Data Reviewed
-
Date of Service: November 16, 2023
Medical Decision Making: Reviewed Test Results
Echo: Report Reviewed by me
Medical Tests (PFT, Pathology etc): Report Reviewed by me
Labs: Labs Reviewed by me
--- NOTE | 2023-11-16 09:54 | W.PN.UPDATE ---
Update Note
Progress Note Update
Additional discussion with general surgery. Patient's abdominal pain is improving and in weighing risk and benefit of surgery surgical team feels conservative management at this point and no immediate plans for surgery.
Based on this I would recommend continued management of hypertension considering the severity of her hypertension, issues with compliance as an outpatient and the need for additional IV meds overnight I would recommend continued hospitalization for
management of hypertension in addition would plan for Lexiscan nuclear perfusion stress test to further evaluate for obstructive coronary disease considering some of the exertional shortness of breath and occasional exertional chest sensation. This
will be also helpful as part of a preoperative assessment in case she does require abdominal surgery in the near future.
Patient will get a.m. meds. If she is hypotensive despite morning meds then would increase labetalol to 200 mg twice daily
N.p.o. after midnight
Lexiscan in a.m.
--- NOTE | 2023-11-16 10:09 | W.PN.HOSP.TC ---
Today's Communication/Plan
-
Stress test in am
monitor BP
dc ivf
Monitor diet tolerance
Assessment / Plan
Assessment / Plan
General: sitting in chair,
HEENT: Moist mucous membranes
Respiratory: mild rhonchi
Cardiac: S1/S2 and Regular Rhythm; No Murmur
GI: Pos bowel sounds, TTP RLQ, non distended
Musculoskeletal: No Clubbing, No Cyanosis and No Edema
Skin: Other (Skin changes / eczema of the lower extremities.)
Neuro: AO x 3
A/P: Patient is a 73y F with PMH significant for cerebral aneurysm who presents to ED complaining of abdominal pain.
Omental Infarct
Abdominal Pain secondary to the above
- Multiple potential etiologies including torsion / mechanical, atherosclerotic / smoking-elated, embolic, etc.
- Surgery evaluation - may require ligation if pain worsens / persists.
- Empiric abx coverage for now and can stop in 24h.
- Lactic normal.
- Monitor on telemetry for any evidence of A-Fib / arrhythmia.
- Follow for any new / worsening symptoms.
- Per surgery plan for conservative management at this point -no surgery. Diet restarted and monitor for tolerance.
Primary hypertension elevated likely chronically
Hypertension urgency
-Used to be on Norvasc 10 mg which seems patient stopped.
-Started on beta-betsy and switch to labetalol per cardiology. 100mg BID. Can increase to 200mg Bid if persistent hypertensive.
-Losartan 50 mg and can uptitrate as needed. May need further adjustment. As needed IV meds ordered.
-Persistent uncontrolled may need IV nitroglycerin
Suspected chronic stable angina
Left ventricular hypertrophy likely 2/2 uncontrolled blood pressure versus HOCM
Mitral regurgitation
-Blood pressure control.
-ECHO noted
-Troponin flat
-PLan for lexiscan stress test in am.
-Cardiology following.
Abdominal aortic aneurysm likely secondary to uncontrolled hypertension secondary to noncompliance and smoking
-CT abdomen pelvis with fusiform aneurysm of the abdominal aorta with mural thrombus. Measuring 3.7 cm. Increase in size compared to 2.[address]
-Counseled on complete alcohol cessation and to be compliant with medications
-Outpatient vascular surgery follow-up
History of brain aneurysm x 2
-Recommended for strict blood pressure control
Mild hypernatremia
-IVF transtioned to hypotonic saline D5/12NS.
-Trend bmp RESOLVED.
Mild Hypokalemia
- Replace via IVFs.
- Follow for improvement.
Tobacco Use Disorder
- Affects all aspects of care and potentially directly related to current presentation.
- Encourage efforts at smoking cessation.
DVT Prophylaxis: Lovenox
Code Status: Full
d/w wtih surgery
Anticipated Discharge: Within 24 hours
Subjective/Interval History
-
Date of Service: November 16, 2023
states improvement in abd pain-not completely alleviated
Objective Data
-
Labs:
Laboratory Results
11/16/23
06:53
WBC 4.2 L
Hgb 12.0
Hct 34.6 L
Plt Count 197
Sodium 143
Potassium 3.8
Chloride 108 H
Carbon Dioxide 28
BUN 18 H
Creatinine 0.7
Glucose 120 H
Calcium 9.0
Vital Signs:
Vital Signs
Temp Pulse Resp BP Pulse Ox
98.4 F 78 16 156/78 92
11/16/23 07:00 11/16/23 08:02 11/16/23 07:00 11/16/23 08:02 11/16/23 07:00
I&O
11/15/23 11/16/23 11/17/23
06:59 06:59 06:59
Intake Total 2510 / 2510 2770 / 2770
Balance 2510 / 2510 2770 / 2770
Data Reviewed
-
Total Time Spent with Patient (in minutes): 56
[2023-11-16] MEDS: TYLENOL PO (10:19)
--- NOTE | 2023-11-16 10:31 | W.PN.GS2 ---
Today's Communication / Plan
-
Patient's diet has been advanced to regular, patient's condition has been improving and if she can tolerate her diet, she is cleared for discharge from a surgery perspective.
Assessment / Plan
-
Assessment:
Ms Benavides is a 73 yo female with a h/o SAH with coiling of brain aneurysm, COPD, HTN, right foot osteomyelitis with debridement who is an active smoker presented with right lower abdominal pain which began one week ago and has increasingly
worsened. On exam, there is significant tenderness to the right mid abdomen with light palpation with guarding. CT imaging reviewed with findings of omental infarction in the right upper to mid abdomen. Patient's pain has improved since yesterday
and her blood pressure has been better controlled. Holding off on surgery as patient's condition is resolving. Will advance diet today to see if patient can keep down food without exacerbation of symptoms.
Plan:
Right sided mid abdominal pain
--Prn narcotics and Tylenol for pain
--Surgery not advised at this time as patient's condition is improving
--Advanced diet today, monitor for tolerance
--Continue Abx
Uncontrolled Hypertension
--Manage per medical team
--Cardiology consulted, input appreciated
DVT Prophylaxis- Lovenox
Subjective Data
-
Date of Service: November 16, 2023
Patient reports no further worsening of symptoms. Says her abdominal pain has been improving since yesterday. Says she only had to have pain medication once at 7:30pm last night. Patient says she had no adverse events overnight and has not been
feeling much dizziness either.
Objective Data
-
Intake and Output
11/15/23 11/16/23 11/17/23
06:59 06:59 06:59
Intake Total 2510 / 2510 2770 / 2770
Balance 2510 / 2510 2770 / 2770
Intake:
Oral fluids 720 / 720
IV fluids (Total) 2150 / 2150 1610 / 1610
IV piggybacks 360 / 360 440 / 440
Other:
Number of approximated MODERATE 3 3
amounts of urine
Number of approximated LARGE 2
amounts of urine
Vital Signs
Temp Pulse Resp BP Pulse Ox
98.4 F 78 16 156/78 92
11/16/23 07:00 11/16/23 08:02 11/16/23 07:00 11/16/23 08:02 11/16/23 07:00
Lab Results
11/16/23 06:53
11/16/23 06:53
Calcium 9.0 mg/dl (8.4-10.2) 11/16/23 06:53
Magnesium 2.0 mg/dl (1.6-2.3) 11/14/23 07:09
Total Bilirubin 0.5 mg/dl (0.2-1.3) 11/13/23 20:23
AST 27 U/L (14-36) 11/13/23 20:23
ALT 21 U/L (0-35) 11/13/23 20:23
Alkaline Phosphatase 65 U/L (38-126) 11/13/23 20:23
Total Protein 6.4 g/dl (6.3-8.2) 11/13/23 20:23
Albumin 4.2 g/dl (3.5-5.0) 11/13/23 20:23
Physical Exam
-
General: Well Developed
HEENT: Normocephalic
GI: Soft, Non Distended, Mild Tenderness (R mid abd + RUQ), less than yesterday
--- NOTE | 2023-11-16 10:35 | W.PN.GS2 ---
Today's Communication / Plan
-
Reg diet, OK for DC from surg standpoint when tolerating
Assessment / Plan
-
Assessment:
73F with omental infarct
Pain improving with NSAIDs
Plan:
Right sided mid abdominal pain
--Prn narcotics for pain
--Stop abx
--Reg diet
--OK for DC home when tolerating
Hypertension
--Manage per medical team
DVT Prophylaxis- Lovenox
Subjective Data
-
Date of Service: November 16, 2023
AFVSS, pain improving, ambulating
Objective Data
-
Intake and Output
11/15/23 11/16/23 11/17/23
06:59 06:59 06:59
Intake Total 2510 / 2510 2770 / 2770
Balance 2510 / 2510 2770 / 2770
Intake:
Oral fluids 720 / 720
IV fluids (Total) 2150 / 2150 1610 / 1610
IV piggybacks 360 / 360 440 / 440
Other:
Number of approximated MODERATE 3 3
amounts of urine
Number of approximated LARGE 2
amounts of urine
Vital Signs
Temp Pulse Resp BP Pulse Ox
98.4 F 78 16 156/78 92
11/16/23 07:00 11/16/23 08:02 11/16/23 07:00 11/16/23 08:02 11/16/23 07:00
Lab Results
11/16/23 06:53
11/16/23 06:53
Calcium 9.0 mg/dl (8.4-10.2) 11/16/23 06:53
Magnesium 2.0 mg/dl (1.6-2.3) 11/14/23 07:09
Total Bilirubin 0.5 mg/dl (0.2-1.3) 11/13/23 20:23
AST 27 U/L (14-36) 11/13/23 20:23
ALT 21 U/L (0-35) 11/13/23 20:23
Alkaline Phosphatase 65 U/L (38-126) 11/13/23 20:23
Total Protein 6.4 g/dl (6.3-8.2) 11/13/23 20:23
Albumin 4.2 g/dl (3.5-5.0) 11/13/23 20:23
Physical Exam
-
Gen: NAD
Abd: soft, obese, mild ttp to RUQ
[2023-11-16] MEDS: NICODERM TRANSDERMAL 21 MG TRANSDERM (11:20)
[2023-11-16] MEDS: TYLENOL 1000 MG PO ×2 (16:19→21:05)
--- NOTE | 2023-11-16 16:30 | PTCARENOTE ---
Addendum entered by Kendra Joseph RN 11/16/23 17:52:
BP rechecked one hour after Hydralazine administration. BP is 197/88. Labetalol given per MAY. Care ongoing at this time.
Original Note:
Patient's manual BP 192/96. Patient asymptomatic at this time. Hydralazine given per MAY. Dr. Holland made aware. Care ongoing at this time
[2023-11-16] MEDS: LOVENOX 40 MG SC (17:43)
[2023-11-16] MEDS: TRANDATE 200 MG PO (20:58)
[2023-11-17 03:26] VITALS: BP 167/86
[2023-11-17 04:54] VITALS: BMI 30.1
[2023-11-17] MEDS: UNASYN IV ×2 (05:38→13:00)
[2023-11-17] MEDS: TYLENOL 1000 MG PO (08:25)
[2023-11-17] MEDS: TRANDATE 200 MG PO (08:25)
[2023-11-17] MEDS: COZAAR 50 MG PO ×2 (08:25→12:56)
[2023-11-17] MEDS: COLACE 100 MG PO (08:25)
[2023-11-17] MEDS: APRESOLINE 10 MG IV (08:25)
[2023-11-17] MEDS: PROTONIX IV 40 MG IV (08:26)
[2023-11-17] MEDS: NICODERM TRANSDERMAL 21 MG TRANSDERM (08:26)
[2023-11-17] MEDS: NSS (PRESERVATIVE FREE) 10 ML IV (08:26)
[2023-11-17 08:53] LABS: % Basophils 0.6 % (0-2); % Eosinophils 4.8 % (0-6); % Immature Granulocytes 0.4 % (0-0.5); % Lymphocytes 22.1 % (20.5-51.1); % Monocytes 10.5 % (1.7-9.3); % Neutrophils 61.6 % (42.2-75.2); Absolute Eosinophils 0.2 10^3/uL (0-0.7); Absolute Lymphocytes 1.1 10^3/uL (1.2-3.4); Absolute Monocytes 0.5 10^3/uL (0.1-0.6); Absolute Neutrophils 3.1 10^3/uL (1.4-6.5); Hematocrit 33.8 % (37.0-47.0); Hemoglobin 11.6 g/dL (12.0-16.0); Mean Corp Hgb Conc. 34.3 g/dL (33.0-37.0); Mean Corpuscular Hgb 29.4 pg (27.0-31.0); Mean Corpuscular Volume 85.6 fL (81.0-99.0); Mean Platelet Volume 9.7 fL (7.4-10.4); Nucleated Red Blood Cells % 0 %; Platelet Count 206 10^3/uL (130-400); Red Blood Cell Count 3.95 10^6/uL (4.20-5.40)
[2023-11-17 09:50] LABS: Blood Urea Nitrogen 16 mg/dl (7-17); Calcium 8.8 mg/dl (8.4-10.2); Carbon Dioxide 26 mmol/L (22-30); Chloride 108 mmol/L (98-107); Estimated Creatinine Clearance 83 ml/min; Glucose 97 mg/dl (70-99); Potassium 3.2 mmol/L (3.5-5.1); Sodium 143 mmol/L (135-145); eGFR > 60.00
--- NOTE | 2023-11-17 10:00 | W.PN.HOSP.TC ---
Today's Communication/Plan
-
await cards recs
trend bp
increase cozaar
Assessment / Plan
Assessment / Plan
General: NAD
HEENT: Moist mucous membranes
Respiratory: mild rhonchi
Cardiac: S1/S2 and Regular Rhythm; No Murmur
GI: Pos bowel sounds, non tender, non distended.
Musculoskeletal: No Clubbing, No Cyanosis and No Edema
Skin: Other (Skin changes / eczema of the lower extremities.)
Neuro: AO x 3
A/P: Patient is a 73y F with PMH significant for cerebral aneurysm who presents to ED complaining of abdominal pain.
Omental Infarct
Abdominal Pain secondary to the above
- Multiple potential etiologies including torsion / mechanical, atherosclerotic / smoking-elated, embolic, etc.
- Surgery evaluation - may require ligation if pain worsens / persists.
- tolerating diet. afebrile. DC further abx.
- Lactic normal.
- Monitor on telemetry for any evidence of A-Fib / arrhythmia.
- Follow for any new / worsening symptoms.
- Per surgery plan for conservative management at this point -no surgery. Diet restarted and monitor for tolerance.
Primary hypertension elevated likely chronically
Hypertension urgency
-Used to be on Norvasc 10 mg which seems patient stopped.
-Started on beta-betsy and switch to labetalol per cardiology Increased to 200mg Bid
-Can restart norvasc if no improvement with cozaar as outpatient.
-Losartan increased to 100mg. As needed IV meds ordered.
-BP improved to SBP 140s.
Suspected chronic stable angina
Left ventricular hypertrophy likely 2/2 uncontrolled blood pressure
Mitral regurgitation
-Blood pressure control.
-ECHO noted
-Troponin flat
-d/w with cardiology Stress test negative for ischemia-await official report.
-Cardiology following.
Abdominal aortic aneurysm likely secondary to uncontrolled hypertension secondary to noncompliance and smoking
-CT abdomen pelvis with fusiform aneurysm of the abdominal aorta with mural thrombus. Measuring 3.7 cm. Increase in size compared to 2.[address]
-Counseled on complete alcohol cessation and to be compliant with medications
-Outpatient vascular surgery follow-up
History of brain aneurysm x 2
-Recommended for strict blood pressure control
Mild hypernatremia
-IVF transtioned to hypotonic saline D5/12NS.
-Trend bmp RESOLVED.
Mild Hypokalemia
- Replace via IVFs.
- Follow for improvement.
Tobacco Use Disorder
- Affects all aspects of care and potentially directly related to current presentation.
- Encourage efforts at smoking cessation.
Hypokalemia
-replete/monitor
DVT Prophylaxis: Lovenox
Code Status: Full
Anticipated Discharge: Today
Subjective/Interval History
-
Date of Service: November 17, 2023
Denies abd pain
tolerating diet
Objective Data
-
Labs:
Laboratory Results
11/17/23
07:46
WBC 5.0
Hgb 11.6 L
Hct 33.8 L
Plt Count 206
Sodium 143
Potassium 3.2 L
Chloride 108 H
Carbon Dioxide 26
BUN 16
Creatinine 0.6
Glucose 97
Calcium 8.8
Vital Signs:
Vital Signs
Temp Pulse Resp BP Pulse Ox
97.8 F 68 16 195/88 93
11/17/23 03:26 11/17/23 08:25 11/17/23 03:26 11/17/23 08:25 11/17/23 03:26
I&O
11/16/23 11/17/23 11/18/23
06:59 06:59 06:59
Intake Total 2770 / 2770 2500 / 2500
Balance 2770 / 2770 2500 / 2500
Data Reviewed
-
Total Time Spent with Patient (in minutes): 56
[2023-11-17] MEDS: LEXISCAN 0.4 MG IV (10:22)
--- NOTE | 2023-11-17 10:57 | PTCARENOTE ---
Lexiscan Stress test completed. Refer to Cardiac Services Monitoring Record for complete assessment and details. Pt given Aminophyliine 75 mg IV for nausea and vomiting of 100 ml. States relief from Aminophylline, no nausea, no chest pain.
Tolerating po fluids now. Report called to Jaclyn on .
[2023-11-17] MEDS: AMINOPHYLLINE 75 MG IV (11:07)
[2023-11-17] MEDS: KCL 40 MEQ PO (12:55)
[2023-11-17 12:56] VITALS: BP 148/71
--- NOTE | 2023-11-17 14:44 | W.DCSUMMARY ---
Discharge Summary
Discharge Data
Date of Admission: 11/14/23
Date of Discharge: 11/17/23
-
Pending Results: No
Hospital Course
73-year-old female past medical history of primary hypertension, brain aneurysm status post coiling who is presenting from home with complaints of abdominal pain. Patient underwent CT abdomen pelvis which showed omental infarct. Patient was kept
n.p.o. and IV fluid was started. General surgery evaluated patient. Patient received prophylactic antibiotics. Initial plan was for surgery however eventually plan was for conservative management. Patient was tolerating diet. Antibiotics were
discontinued. Patient was also found to have a hypertension urgency secondary to noncompliance patient stopped taking blood pressure meds as outpatient. Echocardiogram with concern for HCM and cardiology was consulted. Patient was started on
labetalol and dose was uptitrated 300 mg twice daily. Patient was also started on Cozaar. Patient blood pressure down trended. Patient was also recommended follow-up with vascular surgery for abdominal aortic aneurysm. Patient was counseled
multiple times to be compliant with medication and stop smoking. Patient also underwent stress test which was negative for ischemia.
Discharge Plan
-
Patient Disposition: Home (Routine Discharge)
Discharge Diagnosis/Procedures: Omental infarct
Abdomen pain
Primary hypertension uncontrolled
hypertension urgency
Hypokalemia
Abdominal aortic aneurysm
Mild hypernatremia
Tobacco abuse
Condition: Fair
Diet: As tolerated
Activity: As tolerated
Driving Restrictions: As prior to admission
Instructions: Quitting smoking, BLOOD PRESSURE
Referrals:
Erwin Dumont, DO [Family Provider] - in less than 1 week
Erwin Pan MD [Active] - None (F/U FOR BLOOD PRESSURE )
Jonathan Tinsley MD [Active] - in one to two weeks (CT abdomen pelvis with fusiform aneurysm of the abdominal aorta with mural thrombus. Measuring 3.7 cm. Increase in size compared to 2.[address]/)
Prescriptions:
New
losartan 100 mg Tablet
100 mg PO DAILY 30 Days Qty: 30 0RF
labetalol 200 mg Tablet
300 mg PO BID 30 Days Qty: 90 0RF
Discharge Orders:
Discharge Patient (As Directed); Ordered 11/17/23
Ordered By: Faustino Holland
Discharge Date and Time
Print Language: GEORGIAN
--- NOTE | 2023-11-17 15:23 | CM ---
Met with patient to discuss discharge plan
IMM benefit explained; form signed @ 1520
Patient reported that granddaughter here to provide ride home
Plan: Discharge to home; no needs
--- NOTE | 2023-11-17 15:26 | W.PN.CD ---
Today's Communication / Plan
-
continue labetalol 300mg bid and losartan 100mg daily
Impression / Plan
-
HTN -
-severe hypertension on admission
- improved on labetalol 300mg bid and losartan 100mg daily
HOCM - new on echo.
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
- labetalol added
Abdominal pain - acute.
- omental infarction in the right upper to mid abdomen on CT scan.
- plan is now for med mgmt
- she did undergo stress test as part of possible pre op eval: no evidence of ischemia by perfusion; TID was present; mod risk
Smoker - smoking cessation reviewed and she is not ready to quit at this time.
Physical Exam
Vital Signs/Labs
Vital Signs
Temp Pulse Resp BP Pulse Ox
98.6 F 64 17 148/71 96
11/17/23 12:56 11/17/23 12:56 11/17/23 12:56 11/17/23 12:56 11/17/23 12:56
11/16/23 11/17/23 11/18/23
06:59 06:59 06:59
Actual Weight 76.204 kg 77.156 kg
11/17/23 07:46
11/17/23 07:46
Magnesium 2.0 mg/dl (1.6-2.3) 11/14/23 07:09
LAB Results
11/15/23 11/15/23
12: 19:05
Troponin I 0.030 0.031
Physical Exam
Constitutional: No acute distress and Comfortable
EENT: Moist mucous membranes
Cardiovascular: Rhythm & rate is regular, Pedal edema is absent, JVD pressure is normal and Systolic murmur present
Respiratory: Respiratory effort normal and Lungs clear to auscul.
Neuro/Psych: AO x 3
Data Reviewed
-
Date of Service: November 17, 2023
EKG: Other (Tele: SR 60s)
Echo: Tracing Personally Visualized and interpreted
Labs: Labs Reviewed by me
== END 2023-11-17 15:37 | disposition home or self-care (01) | DRG 394 ==
LOC: 2 SOUTH 03:52
PROVIDERS: ADMITTING PHYSICIAN Hospitalist; ATTENDING PHYSICIAN Hospitalist; CONSULT PHYSICIAN Internal Medicine Cardiovascular Disease; CONSULT PHYSICIAN Surgery; EMERGENCY PHYSICIAN Student in an Organized Health Care Education/Training Program; FAMILY PHYSICIAN Family Medicine
DX: K55.041 Focal (segmental) acute infarction of large intestine (principal); E87.0 Hyperosmolality and hypernatremia; I42.1 Obstructive hypertrophic cardiomyopathy; G43.909 Migraine, unspecified, not intractable, without status migrainosus; E87.6 Hypokalemia; J44.9 Chronic obstructive pulmonary disease, unspecified; I16.0 Hypertensive urgency; E78.00 Pure hypercholesterolemia, unspecified; K21.9 Gastro-esophageal reflux disease without esophagitis; I11.9 Hypertensive heart disease without heart failure; I20.89 Other forms of angina pectoris; I34.0 Nonrheumatic mitral (valve) insufficiency; F17.210 Nicotine dependence, cigarettes, uncomplicated; Z86.79 Personal history of other diseases of the circulatory system; Z95.828 Presence of other vascular implants and grafts; Z91.199 Patient's noncompliance with other medical treatment and regimen due to unspecified reason; Z88.1 Allergy status to other antibiotic agents
CPT/HCPCS: 74177; 78452; 80048; 80053; 81003; 81015; 83605; 83690; 83735; 84484; 85025; 85027; 93005; 93017; 93306; 96361; 96374; 99285; 99406; A9500; J2785; Q9967

== ENCOUNTER → 2024-01-23 11:23 | Outpatient (REF) | payer OTHER, SELFPAY | LOC: PAVMRI 11:23 | PROVIDERS: ATTENDING PHYSICIAN Neurological Surgery; FAMILY PHYSICIAN Family Medicine | DX: I67.1 Cerebral aneurysm, nonruptured (principal) | CPT/HCPCS: 70544 ==

== ENCOUNTER → 2024-02-10 15:16 | Outpatient (REF) | payer OTHER, SELFPAY | LOC: RAD 15:16 | PROVIDERS: ATTENDING PHYSICIAN Family Medicine | DX: I73.9 Peripheral vascular disease, unspecified (principal) | CPT/HCPCS: 93926 ==

== ENCOUNTER → 2024-07-12 09:39 | Outpatient (REF) | payer OTHER, SELFPAY | LOC: HWRAD 09:39 | PROVIDERS: ATTENDING PHYSICIAN Surgery Vascular Surgery; FAMILY PHYSICIAN Family Medicine | DX: I71.40 Abdominal aortic aneurysm, without rupture, unspecified (principal) | CPT/HCPCS: 74176 ==

== ENCOUNTER → 2024-10-26 08:08 | Outpatient (REF) | payer OTHER, SELFPAY | LOC: HWRCS 08:08 | PROVIDERS: ATTENDING PHYSICIAN Internal Medicine Cardiovascular Disease; FAMILY PHYSICIAN Family Medicine | DX: I10 Essential (primary) hypertension (principal); R93.1 Abnormal findings on diagnostic imaging of heart and coronary circulation; I42.2 Other hypertrophic cardiomyopathy | CPT/HCPCS: 93306 ==